=== PATIENT | male | born 1995 ===

== ENCOUNTER 2021-01-20 16:31 | Emergency (ER) | payer SELFPAY ==
[~2021-01-20] VITALS: Ht 193 cm; Wt 91.0 kg
[2021-01-20 16:32] VITALS: BP 123/73
== END 2021-01-20 19:51 | disposition left against medical advice (07) ==
LOC: M ED 16:31
DX: Z53.21 Procedure and treatment not carried out due to patient leaving prior to being seen by health care provider (principal)